=== PATIENT | male | born 1975 | race Caucasian/White ===

== ENCOUNTER → 2019-10-01 15:32 | Outpatient (BNVA) | payer BC, SELFPAY | PROVIDERS: Family Provider Nurse Practitioner Family; PCP Nurse Practitioner Family; Visit Provider Nurse Practitioner | DX: G89.29 Other chronic pain (principal); M54.16 Radiculopathy, lumbar region; M51.36 Other intervertebral disc degeneration, lumbar region; M47.816 Spondylosis without myelopathy or radiculopathy, lumbar region; M47.819 Spondylosis without myelopathy or radiculopathy, site unspecified; M47.812 Spondylosis without myelopathy or radiculopathy, cervical region; Z79.891 Long term (current) use of opiate analgesic; F17.210 Nicotine dependence, cigarettes, uncomplicated | CPT/HCPCS: 99214 ==

== ENCOUNTER → 2019-11-26 13:32 | Outpatient (BNVA) | payer BC, SELFPAY | PROVIDERS: Family Provider Nurse Practitioner Family; PCP Nurse Practitioner Family; Visit Provider Nurse Practitioner | DX: M54.16 Radiculopathy, lumbar region (principal); F17.210 Nicotine dependence, cigarettes, uncomplicated; Z79.891 Long term (current) use of opiate analgesic; Z71.6 Tobacco abuse counseling | CPT/HCPCS: 99213; 99214 ==

== ENCOUNTER → 2020-03-29 13:12 | Outpatient (BNVA) | payer BC, SELFPAY | PROVIDERS: Family Provider Nurse Practitioner Family; PCP Nurse Practitioner Family; Visit Provider Anesthesiology | DX: G89.29 Other chronic pain (principal); M51.36 Other intervertebral disc degeneration, lumbar region; M47.816 Spondylosis without myelopathy or radiculopathy, lumbar region; M54.16 Radiculopathy, lumbar region; M47.812 Spondylosis without myelopathy or radiculopathy, cervical region; M47.819 Spondylosis without myelopathy or radiculopathy, site unspecified; F17.210 Nicotine dependence, cigarettes, uncomplicated; Z79.891 Long term (current) use of opiate analgesic; Z71.6 Tobacco abuse counseling | CPT/HCPCS: 99214 ==

== ENCOUNTER → 2020-04-14 13:16 | Outpatient (BNVA) | payer BC, SELFPAY | PROVIDERS: Family Provider Nurse Practitioner Family; PCP Nurse Practitioner Family; Visit Provider Nurse Practitioner Family | DX: E11.65 Type 2 diabetes mellitus with hyperglycemia (principal); H66.002 Acute suppurative otitis media without spontaneous rupture of ear drum, left ear; Z68.29 Body mass index [BMI] 29.0-29.9, adult; F17.210 Nicotine dependence, cigarettes, uncomplicated; Z71.89 Other specified counseling | CPT/HCPCS: 80053; 80061; 83036; 85025 ==

== ENCOUNTER → 2020-05-12 08:47 | Outpatient (BNVA) | payer BC, SELFPAY | PROVIDERS: Family Provider Nurse Practitioner Family; PCP Nurse Practitioner Family; Visit Provider Anesthesiology | DX: G89.29 Other chronic pain (principal); M54.16 Radiculopathy, lumbar region; M47.816 Spondylosis without myelopathy or radiculopathy, lumbar region; M51.36 Other intervertebral disc degeneration, lumbar region; M47.812 Spondylosis without myelopathy or radiculopathy, cervical region; M47.819 Spondylosis without myelopathy or radiculopathy, site unspecified; F17.210 Nicotine dependence, cigarettes, uncomplicated; Z79.891 Long term (current) use of opiate analgesic; Z71.6 Tobacco abuse counseling | CPT/HCPCS: 99214 ==

== ENCOUNTER → 2020-07-07 10:33 | Outpatient (BNVA) | payer BC, SELFPAY | PROVIDERS: Family Provider Nurse Practitioner Family; PCP Nurse Practitioner Family; Visit Provider Nurse Practitioner Family | DX: E11.65 Type 2 diabetes mellitus with hyperglycemia (principal); Z23 Encounter for immunization | CPT/HCPCS: 80053; 80061; 82043; 83036; 85025 ==

== ENCOUNTER → 2020-07-08 07:54 | Outpatient (BNVA) | payer BC, SELFPAY | PROVIDERS: Family Provider Nurse Practitioner Family; PCP Nurse Practitioner Family; Visit Provider Anesthesiology | DX: G89.29 Other chronic pain (principal); M51.36 Other intervertebral disc degeneration, lumbar region; M47.816 Spondylosis without myelopathy or radiculopathy, lumbar region; M54.16 Radiculopathy, lumbar region; M47.819 Spondylosis without myelopathy or radiculopathy, site unspecified; M47.812 Spondylosis without myelopathy or radiculopathy, cervical region; F17.210 Nicotine dependence, cigarettes, uncomplicated; Z79.891 Long term (current) use of opiate analgesic; Z71.6 Tobacco abuse counseling | CPT/HCPCS: 99214 ==

== ENCOUNTER → 2020-07-12 17:21 | Outpatient (BNVA) | payer BC, SELFPAY | PROVIDERS: Family Provider Nurse Practitioner Family; PCP Nurse Practitioner Family; Visit Provider Nurse Practitioner Family | DX: Z20.828 Contact with and (suspected) exposure to other viral communicable diseases (principal) | CPT/HCPCS: 87635 ==

== ENCOUNTER → 2020-09-01 08:37 | Outpatient (BNVA) | payer BC, SELFPAY | PROVIDERS: Family Provider Nurse Practitioner Family; PCP Nurse Practitioner Family; Visit Provider Anesthesiology | DX: G89.29 Other chronic pain (principal); M51.36 Other intervertebral disc degeneration, lumbar region; M54.16 Radiculopathy, lumbar region; M47.816 Spondylosis without myelopathy or radiculopathy, lumbar region; F17.210 Nicotine dependence, cigarettes, uncomplicated; Z71.6 Tobacco abuse counseling | CPT/HCPCS: 99213; 99214 ==

== ENCOUNTER → 2020-11-01 08:53 | Outpatient (BNVA) | payer BC, SELFPAY | PROVIDERS: Family Provider Nurse Practitioner Family; PCP Nurse Practitioner Family; Visit Provider Anesthesiology | DX: G89.29 Other chronic pain (principal); M47.816 Spondylosis without myelopathy or radiculopathy, lumbar region; M54.16 Radiculopathy, lumbar region; M51.36 Other intervertebral disc degeneration, lumbar region; M47.812 Spondylosis without myelopathy or radiculopathy, cervical region; M47.819 Spondylosis without myelopathy or radiculopathy, site unspecified; K46.9 Unspecified abdominal hernia without obstruction or gangrene; F17.210 Nicotine dependence, cigarettes, uncomplicated; Z79.899 Other long term (current) drug therapy; Z79.891 Long term (current) use of opiate analgesic | CPT/HCPCS: 99213 ==

== ENCOUNTER → 2020-12-22 07:58 | Outpatient (BNVA) | payer BC, SELFPAY | PROVIDERS: Family Provider Nurse Practitioner Family; PCP Nurse Practitioner Family; Visit Provider Anesthesiology | DX: G89.29 Other chronic pain (principal); M54.16 Radiculopathy, lumbar region; M47.816 Spondylosis without myelopathy or radiculopathy, lumbar region; M47.812 Spondylosis without myelopathy or radiculopathy, cervical region; M47.819 Spondylosis without myelopathy or radiculopathy, site unspecified; M51.36 Other intervertebral disc degeneration, lumbar region; F17.210 Nicotine dependence, cigarettes, uncomplicated; Z79.891 Long term (current) use of opiate analgesic | CPT/HCPCS: 99213 ==

== ENCOUNTER → 2020-12-28 09:57 | Outpatient (BNVA) | payer BC, SELFPAY | PROVIDERS: Family Provider Nurse Practitioner Family; PCP Nurse Practitioner Family; Visit Provider Nurse Practitioner Family | DX: E11.65 Type 2 diabetes mellitus with hyperglycemia (principal); F17.200 Nicotine dependence, unspecified, uncomplicated; I10 Essential (primary) hypertension | CPT/HCPCS: 80053; 80061; 83036; 85025 ==

== ENCOUNTER → 2021-03-14 08:24 | Outpatient (BNVA) | payer BC, SELFPAY | PROVIDERS: Family Provider Nurse Practitioner Family; PCP Nurse Practitioner Family; Visit Provider Anesthesiology | DX: G89.29 Other chronic pain (principal); M54.16 Radiculopathy, lumbar region; M47.816 Spondylosis without myelopathy or radiculopathy, lumbar region; M51.36 Other intervertebral disc degeneration, lumbar region; M47.812 Spondylosis without myelopathy or radiculopathy, cervical region; F17.210 Nicotine dependence, cigarettes, uncomplicated; Z79.891 Long term (current) use of opiate analgesic; Z79.899 Other long term (current) drug therapy | CPT/HCPCS: 99214 ==

== ENCOUNTER → 2021-05-09 13:01 | Outpatient (BNVA) | payer BC, SELFPAY | PROVIDERS: Family Provider Nurse Practitioner Family; PCP Nurse Practitioner Family; Visit Provider Anesthesiology | DX: G89.29 Other chronic pain (principal); M47.816 Spondylosis without myelopathy or radiculopathy, lumbar region; M54.16 Radiculopathy, lumbar region; M51.36 Other intervertebral disc degeneration, lumbar region; M47.812 Spondylosis without myelopathy or radiculopathy, cervical region; F17.210 Nicotine dependence, cigarettes, uncomplicated; Z79.891 Long term (current) use of opiate analgesic | CPT/HCPCS: 99214 ==

== ENCOUNTER 2021-05-23 09:04 | Outpatient (CLI) | payer BC, SELFPAY ==
[2021-05-23 09:22] VITALS: BMI 30.7
--- NOTE | 2021-05-23 09:22 | ECG_ITS ---
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 Interpretive Statements NAME OF STUDY: LEXISCAN SESTAMIBI STRESS TEST INDICATION: [Chest Pain] Procedure: At the baseline, the blood pressure was 136/70 mmHg with a heart rate of 53 bpm. The electrocardiogram showed sinus bradycardia normal axis with normal ST and T's. The Lexiscan was infused over a period of 20 seconds. A total of 0.4 mg of Lexiscan was infused. The stress phase was continued for a total of 5 minutes. Heart rate was at the end of stress phase was 60 bpm and a blood pressure of 142/60 mmHg. The EKG at the peak infusion revealed since normal sinus rhythm with no significant ST-T wave changes. Sestamibi was injected 20 seconds after the Lexiscan infusion. Blood pressure at the end of recovery phase was 137/57 mmHg with a heart rate of 58 bpm. Conclusion: 1. Normal EKG response to Lexiscan infusion 2. No Lexiscan induced chest pain or cardiac arrhythmia. 3. Normal blood pressure and heart rate response. 4. Sestamibi/sestamibi perfusion scan pending; see separate report. Electronically Signed On 06-04-2021 12:21:08 CDT by Ang Aggarwal M.D. [id number]
--- NOTE | 2021-05-23 09:23 | NMCV_ITS ---
NM ángel perf SPECT r/s* [id number] Salvatore Angel Age: 45 Gender: M : 1975 Exam Date: 05/23/2021 10:11 Ordering Phys: Ang Aggarwal M.D ([email or web address]) Technologist: RACHAEL Pierce Exam Location: [facility] Indications: CHEST PAIN STRESS TEST [facility] IMAGE PROTOCOL Rest/Stress 1 Lexiscan Day Radiopharmaceutical Dose (mCi) Administration Site Administered by Rest: Tc-99m 10.8 IV RACHAEL Pavon Sestamibi Stress:Tc-99m 32.9 IV RACHAEL Pavon Sestamibi Rest: 23-May-2021 60 Discovery 630 Stress: 23-May-2021 30 Discovery 630 0.4mg Lexiscan. Images obtained in supine and prone position. SPECT RESULTS Technical Quality: Excellent Raw Data Analysis: Normal Image Corrections: No attenuation or motion correction applied Summed Stress Score: 13 Summed Rest Score: 6 Summed Difference Score: 7 PERFUSION FINDINGS There is moderate to large area of mostly reversible perfusion defect in the apical lateral, lateral, apical and inferior littlejohn. This represents prior infarct with moderate to large sized area of sandy-infarct ischemia in these territories. FUNCTIONAL RESULTS (calculated via Gated SPECT) Stress Image LV EF (%): 62 Stress EDV (mL):164 TID: 0.87 Stress ESV (mL):63 FUNCTIONAL FINDINGS: There is normal left ventricular systolic function. IMPRESSIONS 1. Abnormal myocardial perfusion imaging demonstrating prior infarct with moderate to large sized area of sandy-infarct ischemia in distribution of left circumflex artery and RCA. 2. LV systolic function is normal Ang Aggarwal MD (Electronically Signed) Final Date: 27 May 2021 15:02 S
[2021-05-23] MEDS: regadenoson 0.4 Mg/5 ml Syringe IVP (10:45)
[2021-05-23 11:03] VITALS: BP 124/74; PULSE 58
--- NOTE | 2021-05-23 12:00 | USCV_ITS ---
Salvatore Angel Age: 45 Gender: M : 1975 Exam Date: 05/23/2021 09:40 Ordering Phys: Ang Aggarwal M.D ([email or web address]) Technologist: Amanda Garza [place] [facility] [place]: CHEST PAIN BP: 137 / 60 HR: 52 Rhythm: Other Technical Quality: Adequate MEASUREMENTS (Male / Female) Normal Values 2D ECHO LV Diastolic Diameter PLAX 5.1 cm 4.2 - 5.9 / 3.9 - 5.3 cm LV Systolic Diameter PLAX 3.5 cm IVS Diastolic Thickness 1.8 cm 0.6 - 1.0 / 0.6 - 0.9 cm IVS Systolic Thickness 2.0 cm LVPW Diastolic Thickness 1.6 cm 0.6 - 1.0 / 0.6 - 0.9 cm LVPW Systolic Thickness 2.0 cm LVOT Diameter 2.0 cm LV Ejection Fraction 2D Teich 58.1 % LV Ejection Fraction MOD 2C 42.6 % LV Ejection Fraction 2C AL 41.7 % LA Diameter 3.6 cm LA Width 3.7 cm LA Height 4.6 cm RA Width 2.6 cm RA Height 4.8 cm Aorta at Sinotubular Diameter 2.5 cm M-MODE LV Diastolic Diameter MM 6.1 cm 4.2 - 5.9 / 3.9 - 5.3 cm IVS Diastolic Thickness MM 1.0 cm 0.6 - 1.0 / 0.6 - 0.9 cm LVPW Diastolic Thickness MM 1.7 cm 0.6 - 1.0 / 0.6 - 0.9 cm Aortic Annulus Diameter 2.8 cm LA Ao Ratio MM 1.3 MV E Point Septal Separation 0.3 cm DOPPLER AV Peak Velocity 133.0 cm/s LVOT Peak Velocity 104.0 cm/s AV Area Cont Eq vti 2.6 cm squared AV Area Cont Eq pk 2.5 cm squared MV Area PHT 4.0 cm squared MV E' Velocity 47.5 cm/s Mitral E to MV E' Ratio 7.5 Mitral E to LV E' Lateral Ratio 8.1 Mitral E to LV E' Septal Ratio 7.0 TR Peak Velocity 149.6 cm/s TR Peak Gradient 9.0 mmHg TR Mean Velocity 116.5 cm/s TR Mean Gradient 5.8 mmHg TR Velocity Time Integral 40.8 cm TV Peak E Velocity 53.0 cm/s Right Atrial Pressure 3.0 mmHg Pulmonary Artery Systolic Pressu 12.0 mmHg PV Peak Velocity 94.0 cm/s RV Acceleration Time 0.1 s RV Ejection Time 0.3 s RV AcT/ET 0.2 FINDINGS Left Ventricle Normal left ventricular size. LV systolic function is normal with EF of 50-55%. No regional wall motion abnormalities. Normal diastolic filling pattern. Right Ventricle The right ventricle is normal in size and function. Right Atrium The right atrium is normal in size. Left Atrium The left atrium is normal in size. Mitral Valve Structurally normal mitral valve without significant stenosis or prolapse. There is trace mitral regurgitation. Aortic Valve Structurally normal aortic valve without significant sclerosis or stenosis. There is no aortic regurgitation. Tricuspid Valve Structurally normal tricuspid valve without significant stenosis or regurgitation. Insufficient TR jet to calculate RVSP Pulmonic Valve Structurally normal pulmonic valve without significant stenosis. There is no pulmonic regurgitation. Pericardium Normal pericardium without effusion. Aorta Normal ascending aorta dimension. CONCLUSIONS LV systolic function is normal with EF of 50-55% Normal diastolic function Trace mitral regurgitation No comparison studies are available Ang Aggarwal MD (Electronically Signed) Final Date: 27 May 2021 14:42 S
== END 2021-05-23 09:05 | disposition home or self-care (01) ==
LOC: CDL 09:07
PROVIDERS: PCP Nurse Practitioner Family; Visit Provider Internal Medicine
DX: R07.9 Chest pain, unspecified (principal); I34.0 Nonrheumatic mitral (valve) insufficiency; I25.9 Chronic ischemic heart disease, unspecified
CPT/HCPCS: 78452; 93017; 93306; A9500; J2785

== ENCOUNTER → 2021-06-14 08:43 | Outpatient (BNVA) | payer BC, SELFPAY | PROVIDERS: PCP Nurse Practitioner Family; Visit Provider Internal Medicine | DX: R94.39 Abnormal result of other cardiovascular function study (principal) | CPT/HCPCS: 80048; 85025; 85610; 87635 ==

== ENCOUNTER 2021-06-20 09:49 | Observation (INO) | payer BC, SELFPAY ==
[2021-06-20] VITALS (44 sets, daily range): BP systolic 97–158; BP diastolic 37–116; PULSE 40–57; RESP 7–25; TEMP 36.7; O2SAT 95; BMI 30.7
--- NOTE | 2021-06-20 07:30 | XACV_ITS ---
Ht: 178 cm Wt: 97 kg BSA: 2.22 m2 Gender: Male : 1975 Exam Priority: Routine Procedure(s): Procedure Description: Diagnostic procedure Procedure Description: PCI procedure Procedure Description: Drug Eluting Coronary Stent Procedure Description: PTCA Procedure Description: Miscellaneous Procedure Description: ACT Procedure Description: Coronary Angiography Diagnostic Cath Status: Elective Diagnostic Findings * Left Anterior Descending has diffuse luminal irregularities.. * Proximal to mid * circumflex: significant 80% stenosis, DAMARIS: 3 flow. * INDICATION: Worsening angina/ abnormal stress test. * Right Coronary Artery is small nondominant vessel. No significant stenosis.. * Left Main has no disease. * Coronary angiography shows left dominance. PCI Status: Elective PCI Indication: Other Interventional Findings * PROCEDURE DETAILS: We engaged left main artery with XB 3.5 guide catheter. IV heparin was administered to maintain an ACT above 250 seconds. A 0.014 run-through guidewire was used to cross the stenosis and was placed in distal vessel. 2.75 x 12 mm semicompliant balloon was used to predilate the stenosiS. This was followed by placement of 4.0 x 12 mm resolute Veronika drug-eluting stent. At this time final angiogram was performed that showed excellent stent expansion, DAMRAIS-3 flow and no residual stenosis. Guidewire and guide catheter were removed. Patient left the Candles Pourer in a stable condition. * Mid Circumflex: 80% stenosis treated with a AB TREK 2.75X12 RX BALLOON, and MDT Sushila VERONIKA 4.0X12 HANSA. 0% residual stenosis, DAMARIS: 3 flow. Conclusions 1. Proximal to mid Circumflex was treated with a Balloon, and Drug Eluting Stent. 2. There is significant coronary artery disease with one vessel disease. Recommendations * Asprin and Plavix for atleast 1 year. * High intensity statin therapy. * Beta blockers. * Outpatient cardiology follow up in 4 weeks. Interventional RX Recommendation: PCI w/o planned CABG Diagnostic RX Recommendation: PCI w/o planned CABG Anticoagulation: Heparin Pressures Phase:Rest AO : 147 / 85 ( 111 ) @ 7:56:00 AM 122 / 70 ( 83 ) @ 8:14:00 AM Clinical Evaluation EBL: 5mL-10mL Procedural Details Procedure Consent Obtained. Pre-Procedure Time Out. Identified patient by full name and date of as verbalized by the patient/guarantor. Does the consent match the physician's order: Yes. Accurate & Complete Informed Consent: Yes. Inpatient/Outpatient History & Physical on Chart: Yes. If H&P is completed, is and addenduem needed: No; If yes, is the addendum complete: N/A. Visualize and Verify Site with Patient/Guarantor: N/A. Relevant Radiology Images available: N/A. Pre-op teaching completed and patient verbalized understanding. The risks, benefits, and alternatives of sedation and/or procedure were discussed by physician. The patient agrees to continue. Procedure started. [facility] Clinical Fraility Score: 2: Well. Candles Pourer Indications: Worsening Angina,abnormal stress test. Chest Pain Symptom Assessment: Typical Angina Symptoms. Cardiovascular Instability: No. Correct patient, site and procedure confirmed by cath team. PERRLA. Strong, equal hand network account manager bilaterally. Lungs clear x 5 lobes. IV Site on Arrival: 20 gauge in the right anticubital. IV Fluids: 0.9% NaCl at KVO. 0 mL infused prior to label rewinder. Pre Procedural Pulses: bilateral dorsalis pedis was 3+. Pre Procedural Pulses: bilateral posterior tibial was 3+. Pre Procedural Pulses: bilateral radial was 3+. Oxygen started at 2liters/min via nasal canula. right radial was prepped with chloroprep then draped in the usual sterile fashion. right groin was prepped with chloroprep then draped in the usual sterile fashion. Physician arrived. Equipment: 6F - Radial. Cardiac Cath Pack. ACIST Manifold Kit Model BT 2000. Heparinized Saline (2 units/mL), 1000 mL bag. Physician scrubbed in. Immediate Pre-Procedure Time Out. Correct Patient: Yes; Correct Procedure: Yes; Correct Site: Yes; Correct Patient Position: Yes; Correct Supplies: Yes; Dried Flammable Prep: Yes; Blood Products Available: N/A;. Lidocaine 1% infiltrated to the right radial. Arterial access obtained. A 5 cost[place]ican TIG catheter in over wire. Baseline sample Acquired. HR: 55 BPM. Catheter removed over the exchange wire. A 5 cost[place] rican JR4 catheter in over wire. Inventory is TR 180cm Runthrough NS extra floppy 0.014 wire. Inventory is CRD 6 FR XB 3.5 GUIDE. Catheter removed over the exchange wire. 6 costa rican XB 3.5 guide catheter was inserted over the wire. Runthrough guidewire was advanced through the guide catheter to lesion in the mid Circ. Inflation number : 1 A AB TREK 2.75X12 RX BALLOON was prepped and advanced across the Mid CX , then inflated to 12 MIKE for 0:27 seconds. Balloon out. Inflation Number : 2 A EVON R VERONIKA 4.0X12 HANSA -Lot Number# [id number] was prepped and advanced across the Mid CX. The stent was deployed at 12 MIKE for 0:27 seconds. Stent balloon out over wire. Results checked. Wire out. ACT drawn. Results 407 seconds. Therapeutic limits - pre-heparin administration 90-150 seconds and monitoring heparin during a vascular procedure >250 seconds. Guide catheter out. Physician scrubbed out. A TR Band was successful obtaining hemostatsis at the Right Radial artery insertion site. TR band placed. Hemostasis obtained. Post Procedure: Pulses reassessed and unchanged. PERRLA. Strong, equal hand network account manager bilaterally. No VTE prophylaxis required. Medication's Wasted: Lidocaine 1% = 18 mL. Total IV fluids: 59 mL. Medication's Wasted: Nitro = 49.6 mg. Medication's Wasted: Heparin = 1000 units. Contrast type used: Omnipaque 300 mgI/mL, 500 mL bottle. Medication's Wasted: Other = versed 1 mg. PCI Indication: Worsening Angina, abnormal stress test. Post-op diagnosis: severe mid circ stenosis. Complications: none. Estimated blood loss: 5mL-10mL. Procedure completed. Patient transferred by wheelchair to 1st floor. Vital chart was stopped. Access Site Site: Right Radial artery Sheath Size: 6 Fr Hemostasis Method: TR Band Hemostasis Success: Successful Procedure Medications Start: 8:35 AM Stop: 8:35 AM Medication: Aspirin Amount: 325 mg Route: P.O. Start: 8:43 AM Stop: 8:43 AM Medication: Versed Amount: 1 mg Route: I.V. Start: 8:43 AM Stop: 8:43 AM Medication: Fentanyl Amount: 50 mcg Route: I.V. Start: 8:46 AM Stop: 8:46 AM Medication: Versed Amount: 1 mg Route: I.V. Start: 8:46 AM Stop: 8:46 AM Medication: Fentanyl Amount: 50 mcg Route: I.V. Start: 8:50 AM Stop: 8:50 AM Medication: Versed Amount: 1 mg Route: I.V. Start: 8:50 AM Stop: 8:50 AM Medication: Fentanyl Amount: 50 mcg Route: I.V. Start: 8:52 AM Stop: 8:52 AM Medication: Nitrogylcerin Amount: 200 mcg Route: I.A. Start: 8:53 AM Stop: 8:53 AM Medication: Versed Amount: 1 mg Route: I.V. Start: 8:55 AM Stop: 8:55 AM Medication: Heparin Amount: 5000 units Route: I.V. Start: 8:58 AM Stop: 8:58 AM Medication: Fentanyl Amount: 50 mcg Route: I.V. Start: 9:04 AM Stop: 9:04 AM Medication: Versed Amount: 1 mg Route: I.V. Start: 9:06 AM Stop: 9:06 AM Medication: Heparin Amount: 5000 units Route: I.V. Start: 9:21 AM Stop: 9:21 AM Medication: Nitrogylcerin Amount: 200 mcg Route: I.C. Start: 9:29 AM Stop: 9:29 AM Medication: Plavix Amount: 600 mg Route: P.O. I, the attending physician, have reviewed and verified all procedure medications. Yes, all medications given per verbal order History/Risk Factors Hypertension: Yes Dyslipidemia: Yes Peripheral Arterial Disease (PAD): No Myocardial Infarction (MA): No Obesity: No Renal Disease: No Tobacco Use: Current/Recent(w/in 1 year) Prior Interventions PCI: No CABG: No Valve Surgery: No Report Signatures Finalized by Ang Aggarwal MD on 07/05/2021 12:48 PM
[2021-06-20] MEDS: diphenhydrAMINE 50 mg Capsule PO (08:19)
--- NOTE | 2021-06-20 08:35 | P.HP_ITS ---
Same Day Surgery H&P Indication for Procedure/HPI DATE OF PROCEDURE: June 20, 2021 CHIEF COMPLAINT/INDICATIONFOR SURGICAL PROCEDURE: Chest pain/Abnormal stress test PREOP DIAGNOSIS: Chest pain/abnormal stress test PLANNED PROCEDRUE: Operation Date: 06/20/21 08:30 Proposed Procedures p Cardiac Catheterization(Left) - Ang Aggarwal M.D Possible percutaneous coronary intervention 45-year-old man with past medical history of hypertension, hyperlipidemia and diabetes has been experiencing chest pain now symptoms for the last few months. He notices it in substernal location with radiation to the jaw. He underwent nuclear stress test that showed prior infarct with significant sandy-infarct ischemia in RCA and left circumflex artery territory. Plan for left heart cath with possible percutaneous coronary intervention. ROS CONSTITUTIONAL: No fever chills weight loss or gain or night sweats. [] HEENT: Normocephalic, atraumatic.[] RESPIRATORY: No cough, sputum, hemoptysis or wheezing.[] CARDIOVASCULAR: No shortness of breath, chest pain, PND, orthopnea, lower ex tremity edema, presyncope or syncope. [] GI: no nausea vomiting diarrhea. [] GEOTHERMAL OPERATIONS MANAGER: No numbness, tingling, weakness or loss of function in any part of the body. [] MUSCULOSKELETAL: No knee or joint pain or rashes. [] Medications/Allergies* Home Medications Medication Instructions Recorded Confirmed Type acetaminophen 325 mg tablet 325 mg PO ONCE PRN 09/30/19 06/19/21 History qxsotzv-pskjragcjahjv-kgsfkode 250 1 tab PO ONCE 09/30/19 06/19/21 History mg-250 mg-65 mg tablet famotidine 20 mg PO DAILY 06/19/21 06/20/21 History Allergies/Adverse Reactions Allergy/AdvReac Type Severity Reaction Status Date / Time bupropion [From Wellbutrin] AdvReac suicidal Verified 05/23/21 10:29 thoughts Current Medications: Generic Name Dose Route Start Last Admin Trade Name Freq PRN Reason Stop Dose Admin Sodium Chloride 1,000 mls @ 50 mls/hr 06/20/21 07:30 06/20/21 08:19 Sodium Chloride 0.9% IV 06/21/21 03:29 Not Given .Q20H ONE Pertinent History/Comorbid Conditions* Medical History Chronic lumbar radiculopathy Chronic lumbosacral pain Chronic neck pain DDD (degenerative disc disease), lumbar Facet joint disease Facet joint disease of cervical region Long-term use of high-risk medication Lumbar facet arthropathy Opioid contract exists Smoking Surgical History (Updated 10/01/19 @ 15:52 by Phil Bahena MD) S/P vasectomy 1999 Family History (Updated 12/10/19 @ 11:59 by Lady Nassar RN) Myocardial infarct Denies family history of Anesthesia complication Bleeding disorder Social History Second hand smoke exposure: Yes Alcohol intake: never Lives independently: Yes Household members: spouse Housing: House Marital status: Current occupational status: employed Current occupation: [employer] History of recent travel: No Current gender identity: Male Special rae needs: No Agree to transfusion: Yes Pertinent Exam Findings alert, oriented x 3, clear to auscultation bilaterally and regular rate & rhythm Conscious Sedation Assessment PATIENT ASSESSED PRIOR TO SEDATION, WITH NO CHANGE NOTED: Yes AIRWAY EVAL/ANESTHESIA PLAN: normal airway, see other exam findings, ASA III, Monitored Anesthesia, Local Anesthesia, Risks, benefits & alternatives of sedation and/or procedure discussed and Patient agrees to continue as planned Recommendations Surgery/Procedure today (Left heart cath with possible percutaneous coronary intervention) Coding Level of Care Code Acute Leasing Associate for Isaias Valero
--- NOTE | 2021-06-20 10:00 | PC.NURSE ---
Received pt from salvage laborer at approximately 0945 to room 103. Pts TR band in place on right wrist. No hematoma, swelling or bleeding noted. Radial pulse palpable and full. Pt had no c/o pain or discomfort at the present time. No needs voiced. Call light in reach.
[2021-06-20] MEDS: nicotine 21 mg Patch 1 PATCH TRANSDERMA (12:09)
--- NOTE | 2021-06-20 16:15 | PC.NURSE ---
Removed Pts TR Band from right wrist at approximately 1600. No hematoma, swelling or excess bleeding noted. Drsg in place and dry and intact. Pt had no c/o pain or discomfort at the present time. Will cont to monitor. Call light in reach. no needs voiced. Will cont to monitor.
[2021-06-20] MEDS: gabapentin 400 mg Capsule 800 MG PO ×2 (17:54→20:04)
[2021-06-20] MEDS: HYDROcodone-acetaminophen 10-325 mg Tablet 1 TAB PO (20:07)
[2021-06-20] MEDS: tizanidine 4 mg Tablet 6 MG PO (20:07)
[2021-06-20] MEDS: TRAMadol 50 mg Tablet PO (20:08)
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
[2021-06-21] VITALS (52 sets, daily range): BP systolic 130–147; BP diastolic 62–69; PULSE 41–55; RESP 4–20; TEMP 36.6; O2SAT 96
[2021-06-21] MEDS: gabapentin 400 mg Capsule 800 MG PO (08:14)
[2021-06-21] MEDS: famotidine 20 mg Tablet PO (08:14)
[2021-06-21] MEDS: nicotine 21 mg Patch 1 PATCH TRANSDERMA (08:15)
[2021-06-21] MEDS: atorvastatin 40 mg Tablet 20 MG PO (08:15)
[2021-06-21] MEDS: lisinopril 20 mg Tablet PO (08:15)
--- NOTE | 2021-06-21 08:33 | PM.SDS ---
Short Stay Summary Providers Date of Admit/Discharge: 06/20/21 Attending Provider: Ang Aggarwal M.D Primary Care Provider: CINDA Damon Chief Complaint: 64058 [id number] HPI History of Present Illness Salvatore Angel is a 45 year old male with past medical history of hypertension, hyperlipidemia and diabetes who was experiencing chest pain symptoms for the last few months. He noticed it in substernal location with radiation to the jaw. He underwent nuclear stress test that showed prior infarct with significant sandy-infarct ischemia in RCA and left circumflex artery territory. Plan for left heart cath with possible percutaneous coronary intervention. Review of Systems Const: Denies: fever(s), chills or fatigue Eyes: Denies: change in vision or eye redness ENMT: Denies: throat pain or odynophagia Card: Reports: dyspnea on exertion; Denies: chest pain, palpitations, irregular heart rhythm, edema, swelling of feet/ankles, lightheadedness, syncope, pre-syncope, orthopnea or leg pain with exertion Resp: Denies: dyspnea, productive cough or wheezing GI: Denies: nausea, vomiting, hematemesis or diarrhea : Denies: difficulty urinating or dysuria Musc: Reports: neck pain, back pain and muscle cramps; Denies: extremity swelling or joint pain Skin/Breast: Denies: rash, pruritus or erythema Neuro: Reports: headache(s), numbness in extremities and weakness in extremities Psych: Denies: anxiety, depression, suicidal ideation or homicidal ideation Endo: Denies: polyuria, polydipsia or excessive sweating Clark/Lymph: Reports: easy bruising and easy bleeding All/Imm: Reports: seasonal rhinorrhea Home Meds/Allergies Home Medications and Allergies Home Medications Medication Instructions Recorded Confirmed Type acetaminophen 325 mg tablet 325 mg PO ONCE PRN 09/30/19 07/03/21 History famotidine 20 mg PO DAILY 06/19/21 07/03/21 History Allergies Allergy/AdvReac Type Severity Reaction Status Date / Time bupropion [From Wellbutrin] AdvReac suicidal Verified 07/03/21 12:54 thoughts PFSH Acute PFSH: Medical History Chronic lumbar radiculopathy Chronic lumbosacral pain Chronic neck pain Coronary artery disease DDD (degenerative disc disease), lumbar Facet joint disease Facet joint disease of cervical region Long-term use of high-risk medication Lumbar facet arthropathy Opioid contract exists Presence of stent in left circumflex coronary artery Smoking Surgical History S/P vasectomy 1999 Family History Other Myocardial infarct Denies family history of Anesthesia complication Bleeding disorder Social History Smoking and tobacco status: current every day smoker cigarettes Packs smoked per day: 0.5 Second hand smoke exposure: Yes Alcohol intake: former Lives independently: Yes Household members: spouse Housing: House Marital status: Current occupational status: employed Current occupation: [employer] History of recent travel: No Current gender identity: Male Special rae needs: No Agree to transfusion: Yes Vitals/I&O/Wt Last Vital Signs Temp 98.1 F 06/20/21 16:14 Pulse 50 L 06/21/21 06:40 Resp 4 L 06/21/21 06:40 BP 147/66 06/21/21 06:40 Pulse Ox 95 06/20/21 07:50 06/20/21 06/21/21 06/21/21 22:59 06:59 14:59 Intake Total 730 / 980 Balance 730 / 980 Weight last 48 hrs Weight 214 lb Physical Exam Narrative: EXAM NARRATIVE: GENERAL: Patient is alert, awake and oriented x3. [] NECK: No jugular vein distension. [] HEENT: No cyanosis. No icterus. No pallor. [] HEART: Regular S1 and S2. No murmur, rub or gallop. [] LUNGS: Clear to auscultate bilaterally. [] ABDOMEN: Soft, nontender and nondistended. Positive bowel sounds. No guarding, rebound or tenderness. [] CENTRAL NERVOUS SYSTEM: Grossly nonfocal. [] EXTREMITIES: Lower extremities with 1+ edema bilaterally. Pulses palpable in the lower extremities, both dorsalis pedis and posterior tibial. [] Hospital Course Hospital Course Salvatore Angel is a 45 year old male with past medical history of hypertension, hyperlipidemia and diabetes who was experiencing chest pain symptoms for the last few months. He noticed it in substernal location with radiation to the jaw. He underwent nuclear stress test that showed prior infarct with significant sandy-infarct ischemia in RCA and left circumflex artery territory. Plan for left heart cath with possible percutaneous coronary intervention. Coronary angiogram showed severe stenosis of proximal to mid large dominant left circumflex artery. He underwent successful revascularization with HANSA x1. Overnight he stayed stable. Will be discharged home with outpatient cardiology follow-up. Smoking cessation advised SSS Data Data Completed and Pending: Pending at discharge Category Date Time Status [employer] request for service Routin e Exams 06/20/21 07:30 Taken Discharge Plan Discharge Patient Disposition: Home Condition: Stable Prescriptions: New Children's Aspirin 81 mg Tablet,Chewable 81 mg PO DAILY Qty: 90 RF: 2 clopidogrel 75 mg Tablet 75 mg PO DAILY Qty: 90 RF: 3 Continued hydrocodone-acetaminophen 10-325 mg tablet 1 tab PO .five times daily PRN (Reason: pain) 26 Days Qty: 130 RF: 0 tramadol 50 mg tablet 50 mg PO .five times day PRN (Reason: pain) 30 Days Qty: 150 RF: 1 tizanidine 4 mg tablet 6 mg PO TID PRN (Reason: muscle spasticity) 30 Days Qty: 135 RF: 1 acetaminophen [Tylenol] 325 mg tablet 325 mg PO ONCE PRN (Reason: pain) RF: 0 (DME) blood-glucose meter [Accu-Chek Hoda Plus Meter] Misc See Rx Instructions .ROUTE .MEDSUPPLY Qty: 1 RF: 0 (DME) Accu-Chek Hoda Plus test strp Strip See Rx Instructions .ROUTE .MEDSUPPLY Qty: 50 RF: 6 gabapentin 800 mg tablet 800 mg PO TID 30 Days Qty: 90 RF: 1 famotidine 20 mg Tablet 20 mg PO DAILY RF: 0 Held metformin 500 mg tablet 1,000 mg PO BID Qty: 360 RF: 1 Hold Instructions: Resume on 06/23/21. Discontinued atorvastatin 10 mg tablet 10 mg PO DAILY Qty: 90 RF: 1 Excedrin Extra Strength 250-250-65 mg tablet 1 tab PO ONCE RF: 0 lisinopril 20 mg tablet 20 mg PO DAILY Qty: 30 RF: 5 No Action atorvastatin 40 mg tablet 40 mg PO DAILY Qty: 90 RF: 2 lisinopril 40 mg tablet 40 mg PO DAILY Qty: 90 RF: 2 Discharge Orders: Discharge Order (Routine); Ordered 06/21/21 Ordered By: Ang Aggarwal Referrals: Ang Aggarwal M.D [Physician] - (You have an appointment with Dr. Aggarwal on July 03 at 12:45. If you have any questions or concerns please call the office. ) Amberly Hunt FNP [Nurse Practitioner] - 1 week (You have a follow up appointment with Amberly Hunt on June 28, at 12:45. If you have any questions or concerns please call the office. ) Discharge Diet: Diabetic Discharge Activity: Increase activity as tolerated Patient Instructions: Coronary Angioplasty (DC), Opioid Safety, Post Angiogram Home Care Instructions Activity Restrictions/Additional Instructions: Please do not lift more than 5 pounds of weight for the next 5 days. Attestations Medical Necessity Statement*: Care not expected to cross 2 midnights. Time Spent in Patient Care*: other Quality Metrics Clinical Quality Measures: During this hospital stay, did patient experience: None Coding Level of Care Code Acute Certified Ethical Hacker for Isaias Valero
[2021-06-21] MEDS: aspirin 81 mg Chew Tablet PO (09:11)
[2021-06-21] MEDS: clopidogrel 75 mg Tablet PO (09:11)
--- NOTE | 2021-06-21 09:38 | PC.NURSE ---
Removed pt IV with no issues. Pt received education and information about medication changes. Pt has no questions or concerns and was escorted to the main entrance for discharge.
--- NOTE | 2021-06-22 08:55 | PC.SOCIAL ---
discharge follow up call made, spoke with patient. patient picked up aspirin and plavix from the pharmacy and he is taking as prescribed. policy writer typist discussed changes in atorvastatin and lisinopril with patient. pt is aware of holding metformin until 06-23. patient is aware of follow up appointments with Dr. Aggarwal and Amberly Hunt. Discussed weight restriction for the next 5 days.
== END 2021-06-21 09:31 | disposition home or self-care (01) ==
LOC: CSU 09:49
PROVIDERS: Admitting Provider Internal Medicine; PCP Nurse Practitioner Family; Visit Provider Internal Medicine
DX: I25.10 Atherosclerotic heart disease of native coronary artery without angina pectoris (principal); R07.9 Chest pain, unspecified; R94.39 Abnormal result of other cardiovascular function study; I10 Essential (primary) hypertension; E78.5 Hyperlipidemia, unspecified; E11.9 Type 2 diabetes mellitus without complications; Z79.899 Other long term (current) drug therapy; F17.210 Nicotine dependence, cigarettes, uncomplicated; Z82.49 Family history of ischemic heart disease and other diseases of the circulatory system
CPT/HCPCS: 36415; 85347; 93454; C1725; C1769; C1874; C1887; C1894; C9600; G0378; J1644; J2250; J3010; J3490; Q0163; Q9967

== ENCOUNTER → 2021-06-28 14:06 | Outpatient (BNVA) | payer BC, SELFPAY | PROVIDERS: PCP Nurse Practitioner Family; Visit Provider Nurse Practitioner Family | DX: Z95.5 Presence of coronary angioplasty implant and graft (principal) | CPT/HCPCS: 80048 ==

== ENCOUNTER → 2021-07-04 11:41 | Outpatient (BNVA) | payer BC, SELFPAY | PROVIDERS: PCP Nurse Practitioner Family; Visit Provider Anesthesiology | DX: G89.29 Other chronic pain (principal); M54.16 Radiculopathy, lumbar region; M47.816 Spondylosis without myelopathy or radiculopathy, lumbar region; M51.36 Other intervertebral disc degeneration, lumbar region; M47.812 Spondylosis without myelopathy or radiculopathy, cervical region; M47.819 Spondylosis without myelopathy or radiculopathy, site unspecified; F17.210 Nicotine dependence, cigarettes, uncomplicated; Z79.891 Long term (current) use of opiate analgesic; Z79.899 Other long term (current) drug therapy | CPT/HCPCS: 99214 ==

== ENCOUNTER → 2021-09-04 17:00 | Outpatient (BNVA) | payer BC, SELFPAY | PROVIDERS: PCP Nurse Practitioner Family; Visit Provider Family Medicine | DX: E11.65 Type 2 diabetes mellitus with hyperglycemia (principal); I10 Essential (primary) hypertension | CPT/HCPCS: 80053; 80061; 83036; 84443; 85025 ==

== ENCOUNTER → 2021-10-04 11:45 | Outpatient (BNVA) | payer SELFPAY | PROVIDERS: PCP Nurse Practitioner Family; Visit Provider Nurse Practitioner Family | DX: M25.531 Pain in right wrist (principal) | CPT/HCPCS: 73110 ==

== ENCOUNTER → 2021-10-18 11:49 | Outpatient (BNVA) | payer OTHER, SELFPAY | PROVIDERS: PCP Nurse Practitioner Family; Visit Provider Nurse Practitioner Family | DX: Z20.822 Contact with and (suspected) exposure to COVID-19 (principal) | CPT/HCPCS: 87635 ==

== ENCOUNTER → 2022-06-06 09:40 | Outpatient (BNVA) | payer SELFPAY | PROVIDERS: PCP Nurse Practitioner Family; Visit Provider Nurse Practitioner Family | DX: I25.119 Atherosclerotic heart disease of native coronary artery with unspecified angina pectoris; I10 Essential (primary) hypertension; E11.65 Type 2 diabetes mellitus with hyperglycemia; G89.29 Other chronic pain | CPT/HCPCS: 80053; 80061; 82043; 83036; 84443; 85025 ==

== ENCOUNTER → 2023-04-11 10:46 | Outpatient (BNVA) | payer SELFPAY | PROVIDERS: PCP Nurse Practitioner Family; Visit Provider Nurse Practitioner Family | DX: E11.9 Type 2 diabetes mellitus without complications (principal); I10 Essential (primary) hypertension; I25.10 Atherosclerotic heart disease of native coronary artery without angina pectoris | CPT/HCPCS: 80053; 80061; 83036; 84443; 85025 ==

== ENCOUNTER → 2023-08-23 09:30 | Outpatient (BNVA) | payer SELFPAY | PROVIDERS: PCP Nurse Practitioner Family; Visit Provider Nurse Practitioner Family | DX: E11.9 Type 2 diabetes mellitus without complications (principal); I10 Essential (primary) hypertension | CPT/HCPCS: 80053; 83036; 85025 ==

== ENCOUNTER → 2024-03-24 14:25 | Outpatient (BNVA) | payer SELFPAY | PROVIDERS: PCP Nurse Practitioner Family; Visit Provider Nurse Practitioner Family | DX: Z12.5 Encounter for screening for malignant neoplasm of prostate (principal); E11.9 Type 2 diabetes mellitus without complications; M25.50 Pain in unspecified joint | CPT/HCPCS: 80053; 80061; 82607; 83036; 84443; 85025; 85651; 86038; 86140; 86200; 86431; G0103 ==

== ENCOUNTER 2024-03-27 08:56 | Outpatient (CLI) | payer SELFPAY ==
--- NOTE | 2024-03-27 08:59 | XR_ITS ---
WS: [id number] XR foot LT min 3V* [id number] REASON FOR EXAM: M79.672 - Pain in left foot FINDINGS: No fracture or focal bone lesion. Moderate narrowing of the joint space with mild subchondral sclerosis and osteophytosis in the DIP trina ints of the second through the fifth toes. Remainder of the joint spaces in the forefoot are intact a nd relatively well preserved. The joint spaces of the midfoot and hindfoot are intact and well preserved. Small calcaneal anterior plantar enthesophyte. XR/XR foot LT min 3V* [id number] IMPRESSION: Mild osteoarthritis and small calcaneal enthesophyte.
--- NOTE | 2024-03-27 08:59 | XR_ITS ---
WS: [id number] XR ankle LT min 3V* [id number] REASON FOR EXAM: M79.672 - Pain in left foot FINDINGS: No fracture or focal bone lesion. Joint spaces of the left ankle are intact and well preserved. No soft tissue abnormality. XR/XR ankle LT min 3V* [id number] IMPRESSION: No significant abnormality.
== END 2024-03-27 08:57 | disposition home or self-care (01) ==
PROVIDERS: PCP Nurse Practitioner Family; Visit Provider Nurse Practitioner Family
DX: M19.072 Primary osteoarthritis, left ankle and foot (principal); M25.775 Osteophyte, left foot
CPT/HCPCS: 73610; 73630

== ENCOUNTER → 2024-10-14 13:02 | Outpatient (BNVA) | payer MEDICARE, SELFPAY | PROVIDERS: PCP Nurse Practitioner Family; Visit Provider Nurse Practitioner Family | DX: R53.83 Other fatigue (principal); E11.65 Type 2 diabetes mellitus with hyperglycemia | CPT/HCPCS: 80053; 80061; 82043; 83036; 84403; 84443; 85025 ==

== ENCOUNTER → 2024-10-28 10:36 | Outpatient (BNVA) | payer MEDICARE, SELFPAY | PROVIDERS: Family Provider Nurse Practitioner Family; PCP Nurse Practitioner Family; Visit Provider Nurse Practitioner Family | DX: R53.83 Other fatigue (principal) | CPT/HCPCS: 84403 ==

== ENCOUNTER → 2024-11-13 14:10 | Outpatient (BNVA) | payer MEDICARE, SELFPAY | PROVIDERS: Family Provider Nurse Practitioner Family; PCP Nurse Practitioner Family; Visit Provider Nurse Practitioner Family | DX: R05.9 Cough, unspecified (principal) | CPT/HCPCS: 71046 ==

== ENCOUNTER → 2024-12-21 11:26 | Outpatient (BNVA) | payer MEDICARE, SELFPAY | PROVIDERS: PCP Nurse Practitioner Family; Referring Provider Nurse Practitioner Family; Visit Provider Internal Medicine | DX: Z53.9 Procedure and treatment not carried out, unspecified reason (principal) ==

== ENCOUNTER → 2024-12-30 12:03 | Outpatient (BNVA) | payer MEDICARE, SELFPAY | PROVIDERS: PCP Nurse Practitioner Family; Referring Provider Nurse Practitioner Family; Visit Provider Internal Medicine | DX: E11.65 Type 2 diabetes mellitus with hyperglycemia (principal); E78.2 Mixed hyperlipidemia; Z12.5 Encounter for screening for malignant neoplasm of prostate; G62.9 Polyneuropathy, unspecified; E11.9 Type 2 diabetes mellitus without complications; I10 Essential (primary) hypertension; Z79.891 Long term (current) use of opiate analgesic; R53.83 Other fatigue; Z86.16 Personal history of COVID-19 | CPT/HCPCS: 99204 ==

== ENCOUNTER → 2025-01-07 08:24 | Outpatient (BNVA) | payer MEDICARE, SELFPAY | PROVIDERS: PCP Nurse Practitioner Family; Visit Provider Internal Medicine | DX: Z12.5 Encounter for screening for malignant neoplasm of prostate (principal); I10 Essential (primary) hypertension; E11.65 Type 2 diabetes mellitus with hyperglycemia; E78.2 Mixed hyperlipidemia; G62.9 Polyneuropathy, unspecified; Z79.891 Long term (current) use of opiate analgesic | CPT/HCPCS: 82306; 82533; 84403; 84439; 84443 ==

== ENCOUNTER → 2025-06-04 10:13 | Outpatient (BNVA) | payer MEDICARE, SELFPAY | PROVIDERS: PCP Nurse Practitioner Family; Visit Provider Internal Medicine Cardiovascular Disease | DX: I25.10 Atherosclerotic heart disease of native coronary artery without angina pectoris (principal); I10 Essential (primary) hypertension; E78.5 Hyperlipidemia, unspecified; J44.9 Chronic obstructive pulmonary disease, unspecified; I49.3 Ventricular premature depolarization; M54.30 Sciatica, unspecified side; M48.00 Spinal stenosis, site unspecified | CPT/HCPCS: 99214 ==

== ENCOUNTER → 2025-07-28 13:27 | Outpatient (BNVA) | payer MEDICARE, SELFPAY | PROVIDERS: PCP Nurse Practitioner Family; Visit Provider Nurse Practitioner Family | DX: E11.65 Type 2 diabetes mellitus with hyperglycemia (principal); Z79.891 Long term (current) use of opiate analgesic; Z12.5 Encounter for screening for malignant neoplasm of prostate | CPT/HCPCS: 80053; 80061; 82607; 83036; 84443; 85025; G0103 ==

== ENCOUNTER 2025-08-18 10:52 | Outpatient (RCR) | payer MEDICARE, SELFPAY | END 2025-08-22 23:59 | disposition home or self-care (01) | LOC: TPT 10:52 | PROVIDERS: Visit Provider Student in an Organized Health Care Education/Training Program | DX: M43.02 Spondylolysis, cervical region (principal) | CPT/HCPCS: 97110; 97161 ==

== ENCOUNTER → 2025-09-03 10:40 | Outpatient (BNVA) | payer MEDICARE, SELFPAY | PROVIDERS: PCP Nurse Practitioner Family; Visit Provider Podiatrist Foot & Ankle Surgery | DX: I73.9 Peripheral vascular disease, unspecified (principal); L60.0 Ingrowing nail | CPT/HCPCS: 99204 ==

== ENCOUNTER 2025-09-07 11:11 | Outpatient (RCR) | payer MEDICARE, SELFPAY | END 2025-09-22 23:59 | disposition home or self-care (01) | LOC: TPT 11:11 | PROVIDERS: Visit Provider Student in an Organized Health Care Education/Training Program | DX: M43.02 Spondylolysis, cervical region (principal) | CPT/HCPCS: 97110 ==

== ENCOUNTER 2025-09-08 14:40 | Outpatient (CLI) | payer MEDICARE, SELFPAY ==
--- NOTE | 2025-09-08 15:30 | USR_ITS ---
PROCEDURE INFORMATION: Exam: US Duplex Bilateral Lower Extremity Arteries Exam date and time: 09/08/2025 3:17 PM Age: 49 years old Clinical indication: Other: Decreased pedal pulses; Additional info: Decreased blood flow to the lower extremeties TECHNIQUE: Imaging protocol: Real-time ultrasound scan of the arteries of the bilateral lower extremities with 2-D balderas scale, color Doppler flow and spectral waveform analysis. Images documented and saved. COMPARISON: CR XR ankle LT min 3V* [id number] 03/27/2024 9:05 AM FINDINGS: Right common femoral artery: No occlusion or significant stenosis. Normal waveform. Right superficial femoral artery: No occlusion or significant stenosis. Normal waveform. Right popliteal artery: No occlusion or significant stenosis. Normal waveform. Right calf/foot arteries: No occlusion or significant stenosis in the visualized arteries. Normal waveforms. Dorsalis pedis artery is patent. Left common femoral artery: No occlusion or significant stenosis. Normal waveform. Left superficial femoral artery: No occlusion or significant stenosis. Normal waveform. Left popliteal artery: No occlusion or significant stenosis. Normal waveform. Left calf/foot arteries: No occlusion or significant stenosis in the visualized arteries. Normal waveforms. Dorsalis pedis artery is patent. US/CV arterial duplex [facility] [id number] IMPRESSION: 1. No stenosis or occlusion. 2. Incidentally noted irregular heart rate.
== END 2025-09-08 14:41 | disposition home or self-care (01) ==
LOC: RAD 14:45
PROVIDERS: PCP Nurse Practitioner Family; Visit Provider Podiatrist Foot & Ankle Surgery
DX: I73.9 Peripheral vascular disease, unspecified (principal)
CPT/HCPCS: 93925